=== PATIENT | male | born 1985 | race African-American/Black ===

== ENCOUNTER 2016-11-01 09:20 | Emergency (ER) | payer MEDICAID ==
[~2016-11-01] VITALS: Ht 172.7 cm; Wt 65.0 kg
[2016-11-01] MEDS ORDERED: SODIUM CHLORIDE 0.9% 1,000 ML IV ONE (09:46)
[2016-11-01] MEDS ORDERED: ONDANSETRON HCL 4MG/2ML VIAL IV STA (09:46)
[2016-11-01 10:03] LABS: HEMATOCRIT. 45.9 % (42.0-52.0); HEMOGLOBIN. 15.9 g/dL (14.0-18.0); MEAN CORPUSCULAR HEMOGLOBIN 31.1 pg (28.0-32.0); MEAN PLATELET VOLUME 8.1 fl (7.4-10.4); PLATELET 196 x1000/uL (130-400); RED CELL DISTRIBUTION WIDTH 12.7 % (11.6-14.6)
[2016-11-01 10:06] LABS: CHLORIDE 106 mEq/L (98-107)
[2016-11-01 10:08] LABS: INR 1.1; PROTHROMBIN TIME 11.3 sec
[2016-11-01 10:15] LABS: CARBON DIOXIDE 17 mEq/L (21-32)
[2016-11-01 10:40] LABS: CLARITY URINE CLEAR (CLEAR); COLOR URINE YELLOW (YELLOW); GLUCOSE URINE NEGATIVE (NEGATIVE); KETONES URINE 3+ (NEGATIVE); LEUKOCYTE ESTERASE URINE NEGATIVE (NEGATIVE); NITRITE URINE NEGATIVE (NEGATIVE); OCCULT BLOOD URINE TRACE (NEGATIVE); PROTEIN URINE NEGATIVE (NEGATIVE); SPECIFIC GRAVITY URINE 1.024 (1.005-1.030); UROBILINOGEN URINE 0.2 E.U./dL (0.2-1.0)
[2016-11-01 10:53] LABS: PLATELET ESTIMATE NORMAL
[2016-11-01 11:04] LABS: *AMPHETAMINES SCREEN URINE NEGATIVE (NEGATIVE); *BARBITURATES SCREEN URINE NEGATIVE (NEGATIVE); *BENZODIAZEPINES SCREEN URINE NEGATIVE (NEGATIVE); *COCAINE SCREEN URINE NEGATIVE (NEGATIVE); CANNABINOID URINE SCREEN PRESUMTIVE POSITIVE (NEGATIVE); METHADONE URINE SCREEN NEGATIVE (NEGATIVE); OPIATES URINE SCREEN NEGATIVE (NEGATIVE); PHENCYCLIDINE URINE SCREEN NEGATIVE (NEGATIVE)
[2016-11-01] MEDS ORDERED: FAMOTIDINE 20MG/2ML VIAL IV STA (11:43)
[2016-11-01 13:13] VITALS: BP 124/60
== END 2016-11-01 13:43 | disposition home or self-care (01) ==
LOC: ER 09:35
DX: R10.9 Unspecified abdominal pain (principal); F10.10 Alcohol abuse, uncomplicated; D72.829 Elevated white blood cell count, unspecified; F12.10 Cannabis abuse, uncomplicated; Y90.1 Blood alcohol level of 20-39 mg/100 ml
CPT/HCPCS: 36415; 80053; 80305; 81001; 82962; 83690; 85025; 85610; 96361; 96374; 96375; 99285; G0482; J2405; J3490; Z7610; J7030